=== PATIENT | male | born 1965 | race African-American/Black ===

== ENCOUNTER → 2016-12-12 | Outpatient (CLI) | payer MEDICARE, OTHER ==
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
[2016-12-12 12:46] LABS: POC - CREATININE 1.12 mg/dL (0.64-1.27); POC - GFR >60.0 mL/min (>60)
== END | disposition home or self-care (01) ==
LOC: CMRI 12:17
PROVIDERS: Psychiatry & Neurology Neurology
DX: R41.3 Other amnesia (principal); G93.5 Compression of brain; J34.2 Deviated nasal septum
CPT/HCPCS: 70553; 82565; A9577